=== PATIENT | female | born 1945 | race African-American/Black ===

== ENCOUNTER 2020-01-25 12:35 | Inpatient (IN) | payer MEDICARE, MEDICAID ==
[~2020-01-25] VITALS: Ht 165.1 cm; Wt 66.1 kg
--- NOTE | ~2020-01-25 | HEMODYNAMI ---
PATIENT:KALINA ISABEL MEDICAL RECORD: [id number] : 47 LOCATION:[facility] D2121 ADMISSION DATE: 01/25/20 Generatedon:01/27/202010:19 Patient name: KALINA ISABEL Patient #: [id number] SSN: [id number] : 1945 Date of study: 01/27/2020 Page: Of Hemodynamic Procedure Report Patient Data Patient Demographics Procedure consent was obtained First Name: KALINA Gender: Female Last Name: CHALO : 1945 Patient #: [id number] Age: 74 year(s) Race: Black SSN: [id number] Additional ID: [id number] Contact details [address]: [address] [place] [address] State: [place] City: [place] Zip code: [address] Admission Admission Data Admission Date: 01/25/2020 Admission Time: 15:12 Arrival Date: 01/27/2020 Arrival Time: 0:00 Admit Source: Other Insurance Payor: Medicare Room #: D.2121 [facility] #: [id number] Height (in.): 65 BSA: 1.73 (m2) Height (cm.): 165.1 BMI: 24.39 (kg/m2) Weight (lbs.): 146.54 Weight (kg.): 66.47 Lab Results Lab Result Date: 01/27/2020 Lab Result Time: 0:00 Biochemistry Name Units Result Min Max BUN mg/dl 22 --(----)-* 7 18 Creatinine mg/dl 1.3 --(---*)-- 0.6 1.3 eGFR ml/min 42 *-(----)-- 90 120 NONAFRICAN CBC Name Units Result Min Max Hematocrit % 37.5 *-(----)-- 42 54 Hemoglobin g/dl 12 *-(----)-- 13.5 17.5 Procedure Procedure Types Cath Procedure Diagnostic Procedure [facility] w/Coronaries Sedation Charges Moderate Sedation up to 15 minutes Procedure Description Procedure Date Procedure Date: 01/27/2020 Procedure Start Time: 10:05 Procedure End Time: 10:13 Procedure Staff Name Function Mary Galvez RT Scrub Tyler Willis RN Nurse Nkechi Joya RT Monitor Theresa Malcolm MD Performing Physician Procedure Data Cath Procedure Fluoroscopy Diagnostic fluoroscopy Total fluoroscopy Time: 1.7 time: 1.7 min min Diagnostic fluoroscopy Total fluoroscopy dose: 151 dose: 151 mGy mGy Contrast Material Contrast Material Type Amount (ml) Isovue 300 17 Entry Location Entry Primary Successful Side Size Upsize Upsize Entry Closure Roblero ccessful Closure Location (Fr) 1 (Fr) 2 (Fr) Remarks Device Remarks Radial Right 6 Fr Mechanical artery Short Compression Estimated blood loss: 5 ml Diagnostic catheters Device Type Used For End Catheter Placement DIAGNOSTIC [place] 110cm 5 Multi-vessel Fr catheter ([id number]) Angiography Procedure Complications No complications Procedure Medications Medication Administration Route Dosage Oxygen etCO2 Nasal cannula 2 l/min Lidocaine 2% added to field 20 Heparin Flush Bag added to field 2 bags (1000units/500ml NS) 0.9% NaCl I.V. 100 ml/hr Radial Cocktail I.A. 1 syringe (Verapamil 2mg/Nitro 400mcg/Heparin 1500units) Versed I.V. 1 mg Hemodynamics Rest BSA: 1.73 (m2) HGB: 12 (g/dl) O2 Consumption: Estimated: 163.18 (ml/min) O2 Cons umption indexed: Estimated:94.32 (ml/min/m) Heart Rate: 78 (bpm) Pressure Samples Time Site Value (mmHg) Purpose Heart Use Rate(bpm) 10:09 LV 108/8,23 Snapshot 69 10:09 LV 105/9,23 Snapshot 72 10:10 LV 102/14,17 EDP 71 10:10 AO 103/64(81) Pullback 70 10:10 LV 101/14,17 Pullback 70 Gradients Valve Time Site 1 Site 2 Mean SEP/DFP Peak To Heart Use (mmHg) (sec/min) Peak Rate (mmHg) (bpm) Aortic 10:10 LV AO 0 9 0 70 101/14,17 103/64(81) Calculations Valve P-P Mean Valve Index Valve Source Name Gradient Area Flow (cm2) Aortic 0 0 0 0 Snapshots Pre Cath Intra NCS Post Cath Vital Signs Time Heart Resp SPO2 etCO2 NIBP (mmHg) Rhythm Pain Sedation Rate (ipm) (%) (mmHg) Status Level (bpm) 9:46:15 71 37 100 0 136/58(119) NSR 0 (11) 10(A) , No pain 9:51:18 73 19 100 0 142/76(117) NSR 0 (11) 10(A) , No pain 9:55:34 74 31 97 11.9 145/95(133) NSR 0 (11) 10(A) , No pain 9:59:58 70 15 99 19.4 150/106(129) NSR 0 (11) 10(A) , No pain 10:04:30 73 19 99 11.9 135/83(96) NSR 0 (11) 10(A) , No pain 10:09:05 71 29 100 16.4 163/75(102) NSR 0 (11) 10(A) , No pain 10:14:31 69 6 100 17.1 162/88(113) NSR 0 (11) 10(A) , No pain Medications Time Medication Route Dose Verified Delivered Reason Notes Effectiveness by by 9:39:05 Oxygen etCO2 2 l/min Norred Tyler used for Nasal Gold Willis RN procedure cannula 9:39:11 Lidocaine 2% added 20ml Jemred Jemred for local to vial Gold Malcolm MD anesthetic field 9:39:18 Heparin Flush added 2 bags Norred Jemred used for Bag to Gold Malcolm MD procedure (1000units/500ml field NS) 9:39:26 0.9% NaCl I.V. 100 Norred Buffie Per ml/hr Gold Willis RN physician 10:00:45 Versed I.V. 1 mg Jemred Buffie for sedation Gold Willis RN 10:08:33 Radial Cocktail I.A. 1 Norred Norred for (Verapamil syringe Gold Malcolm MD vasodilation 2mg/Nitro 400mcg/Heparin 1500units) Procedure Log Time Note 9:08:01 Informed consent obtained and on chart 9:08:32 Diagnostic Cath Status : Urgent 9:10:00 Arrival Date: 01/27/2020 12:00:00 AM 9:10:01 Admit Source: Other 9:10:04 Insurance Payor : Medicare 9:10:07 Patient Height : 65 inches 9:10:15 Patient Weight : 146.54 lbs : Lab Result : BUN 22 mg/dl : Lab Result : Hemoglobin 12 g/dl : Lab Result : eGFR NONAFRICAN 42 ml/min : Lab Result : Creatinine 1.3 mg/dl Lab Result : Hematocrit 37.5 % 9:17:28 Tyler Willis RN sent for patient. Start room use. 9:27:34 Time tracking: Regular hours (M-F 7:00 - 5:00) 9:27:38 Plan of Care:Hemodynamics will remain stable., Cardiac rhythm will remain stable., Comfort level will be maintained., Respiratory function will remain adequate., Patient/ family verbilizes understanding of procedure., Procedure tolerated without complication., Recovers from procedure without complications.. 9:27:48 Patient received from Med II to CCL 2 Alert and oriented. Tansferred to table in Supine position. 9:27:49 Warm blankets applied, and owen hugger turned on for patient comfort. 9:27:49 Correct patient and procedure confirmed by team. 9:27:50 ECG and BP/O2 sat monitors applied to patient. 9:38:28 Vital chart was started 9:39:05 Oxygen 2 l/min etCO2 Nasal cannula was administered by Tyler Willis RN; used for procedure; Verbal order read back and verified. 9:39:11 Lidocaine 2% 20ml vial added to field was administered by Theresa Malcolm MD; for local anesthetic; Verbal order read back and verified. 9:39:18 Heparin Flush Bag (1000units/500ml NS) 2 bags added to field was administered by Theresa Malcolm MD; used for procedure; Verbal order read back and verified. 9:39:26 0.9% NaCl 100 ml/hr I.V. was administered by Tyler Willis RN; Per physician; Verbal order read back and verified. 9:39:48 Baseline sample Acquired. 9:40:00 Rhythm: sinus tachycardia 9:40:06 Full Disclosure recording started 9:40:11 H&P Date Dictated: 01/27/2020 New H&P dictated by physician.. 9:40:13 Pre-procedure instructions explained to patient. 9:40:13 Pre-op teaching completed and patient verbalized understanding. 9:40:19 Family unavailable. 9:40:20 Patient NPO since Midnight. 9:40:29 Is the patient allergic to Iodine/contrast media? No. 9:40:30 Was the patient premedicated? Yes 9:40:32 Is patient on blood thinner?Yes 9:40:34 ACC The patient was administered the following blood thiners within the last 24 hours: ACCPlavix 9:40:36 Patient diabetic? No. 9:40:39 Previous problem with sedation/anesthesia? No ? 9:40:40 Snore? No 9:40:41 Sleep apnea? No 9:40:42 Deviated septum? No 9:40:43 Opens mouth fully? Yes 9:40:43 Sticks out tongue? Yes 9:40:45 Airway obstruction? No ? 9:40:51 Dentures? Yes uppers in tight 9:41:11 Pre procedure: right dorsailis pedis pulse 1+ Palpable, but thready & weak; easily obliterated 9:41:14 Pre procedure: left dorsailis pedis pulse 1+ Palpable, but thready & weak; easily obliterated 9:41:42 Patient pain scale 0/10 ?. 9:42:16 IV patent on arrival in right antecubital with 0.9% NaCl at [facility]. 9:42:20 Lab results completed and on chart. 9:42:36 Stress Test: no; N/A ? 9:47:07 Risk of Mortality: 0.1 9:47:09 Risk of blood transfusion: 1.3 9:47:13 Risk of DIO: 2.3 9:47:17 Right Radial & Right Groin area was prepped with chlora-prep and draped in sterile fashion 9:47:18 Alarms reviewed by R. N. 9:47:19 Sharps counted by scrub and verified by R.N. 9:47:20 Physician arrived 9:47:22 --------ALL STOP TIME OUT------ 9:47:22 --------ALL STOP TIME OUT------ 9:47:22 Final Timeout: patient, procedure, and site verified with staff and physician. All members of the team are in agreement. 9:47:24 Right Radial & Right Groin site verified by team. 9:47:28 Fire Safety Assessment: A--An alcohol-based skin anteseptic being used preoperatively., C--Open oxygen or nitrous oxide is being used., D--An ESU, laser, or fiber-optic light is being used. 9:47:33 Physical assessment completed. ASA score P 2 - A patient with mild systemic disease as per Theresa Malcolm MD. 9:47:36 3b) 30-44 Moderately reduced kidney function. 9:47:42 Maximum allowable contrast dose (3.7 X eGFR X 0.75)116 ml. 9:47:45 Sedation plan: IV Moderate Sedation Medication:Versed, Fentanyl 9:47:48 Use device set Radial Dx or PCI 9:47:49 ACIST Syringe (68154) opened to sterile field. 9:47:50 Medline Cath Pack ([id number]) opened to sterile field. 9:47:51 Bag Decanter (2002S) opened to sterile field. 9:47:51 ACIST Hand Control (10594) opened to sterile field. 9:47:51 ACIST Manifold (06376) opened to sterile field. 9:47:52 Tegaderm 4 x 4 (1626W) opened to sterile field. 9:47:53 MBrace Wrist Support ([id number]) opened to sterile field. 9:47:55 EMERALD Guide Wire (876-979) opened to sterile field. 9:47:56 SHEATH 6FR RAIN (6033187) opened to sterile field. 10:00:45 Versed 1 mg I.V. was administered by Tyler Willis RN; for sedation; Verbal order read back and verified. 10:05:10 Procedure started. 10:05:25 Local anesthetic to right radial artery with Lidocaine 2% by Theresa Malcolm MD.INITIAL ACCESS ONLY 10:05:37 A 6 Fr Short sheath was inserted into the Right Radial artery 10:06:15 Zero performed for pressure channel P1 10:08:23 A DIAGNOSTIC [place] 110cm 5 Fr catheter (532923) was advanced over the wire and used for Multi-vessel Angiography. 10:08:33 Radial Cocktail (Verapamil 2mg/Nitro 400mcg/Heparin 1500units) 1 syringe I.A. was administered by Theresa Malcolm MD; for vasodilation; Verbal order read back and verified. 10:10:02 LV hemodynamics recorded. 10:10:04 LV gram done using PANDYA 10:10:07 Injector settings: Ml/sec: 12, Volume: 8, 10:10:49 EF : 15 % 10:11:01 RCA angiography performed. 10:11:04 Injector settings: Ml/sec: 2, Volume: 4, 10:11:22 LCA angiography performed. 10:11:36 Injector settings: Ml/sec: 2, Volume: 4, 10:11:38 Catheter removed. 10:11:57 Sheath removed intact; hemostasis achieved with Mechanical Compression to the Right Radial artery. 10:12:12 Procedure ended.(Physican Out) 10:12:35 Fluoroscopy time 01.70 minutes. 10:12:38 Fluoroscopy dose: 151 mGy 10:12:38 Flurop Dose total: 151 10:12:46 Dose Area Product 72932 mGy/cm. 10:12:48 Contrast amount:Isovue 300 17ml. 10:12:50 Maximum allowable dose exceeded? No. 10:12:51 Sharps counted by scrub and verified by R.N. 10:12:54 [place] band inflated with 10cc of air. 10:12:55 Insertion/operative site no bleeding no hematoma. 10:12:58 Post right radial artery:stable 10:13:00 Post Procedure Pulses reassessed and unchanged 10:13:02 Post procedure rhythm: unchanged. 10:13:04 Estimated blood loss: 5 ml 10:13:06 Post procedure instruction explained to patient.Patient verbalizes understanding. 10:13:06 Patient needs reinforcement of post procedure teaching. 10:13:17 Procedure type changed to Cath procedure, Diagnostic procedure, C, [facility] w/Coronaries, Sedation Charges, Moderate Sedation up to 15 minutes 10:13:27 Procedure and supply charges have been captured, reviewed, submitted and are correct. 10:13:31 Procedure Complication : No complications 10:13:33 Vital chart was stopped 10:13:38 [facility] Findings: MVD- MD will discuss options w/ pt 10:13:40 Operative report dictated upon procedure completion. 10:13:40 See physician's report for complete and final results. 10:13:42 Report given to [facility]. 10:13:45 Patient transfered to [facility] with Stretcher. 10:13:47 Procedure ended. 10:13:47 Full Disclosure recording stopped 10:13:53 End room use (Document Last) 10:14:34 ZEPHYR REGULAR TR BAND (812195) opened to sterile field. 10:15:27 ZEPHYR LARGE TR BAND (066536) opened to sterile field. 10:18:14 TR BAND Standard ([id number]) opened to sterile field. Device Usage Item Name Manufacture Quantity Catalog Hospital Part Current Minima l Lot# / Number Charge Number Stock Stock Serial# Code ACIST Acist 1 62272 948183 178104 [id number] 20 Syringe Medical (23396) Systems Inc Medline Medline 1 [id number] 622389 10014 845617 5 Cath Pack ([id number]) Bag Microtek 1 2001S 415166 77582 673478 5 Decanter Medical Inc. (2001S) ACIST Hand Acist 1 33280 318339 520918 036212 5 Control Medical (98169) Systems Inc ACIST Acist 1 30262 821190 150968 740993 5 Manifold Medical (57588) Systems Inc Tegaderm 4 3M 1 1626W 359606 995701 408381 5 x 4 (1626W) MBrace Advanced 1 140-0250-00 325864 96104 008455 5 Wrist Vascular Support Dynamics ([id number]) EMERALD Cardinal 1 502-455 835938 464935 736676 5 Guide Wire Health (502-455) SHEATH 6FR Cardinal 1 3528435 304264 1303155 772944 5 RAIN Health (5100281) DIAGNOSTIC Terumo 1 40-5533 415916 360161 752281 5 [place] 110cm 5 Fr catheter (222423) ZEPHYR Cardinal 1 416442 745116 9974729 754578 5 REGULAR TR Health BAND (311376) ZEPHYR Cardinal 1 813063 427182 4207479 250285 5 LARGE TR Health BAND (189051) TR BAND Terumo 1 [id number] 987041 129912 448155 40 Standard ([id number]) Signature Audit Lewis Stage Time Signature Unsigned Intra-Procedure 01/27/2020 Nkechi Joya 10:15:28 AM RT(R) Intra-Procedure 01/27/2020 Tyler Willis RN 10:18:14 AM Intra-Procedure 01/27/2020 Theresa Malcolm MD 10:19:20 AM Signatures Nurse : Tyler Willis RN Signature : Date : Time : Monitor : Nkechi Toan RT Signature : Date : Time : Performing Physician : Signature : Norred Gold MD Date : Time : [place] [address] [place] [address]
[2020-01-25] MEDS ORDERED: COREG12.5 MG PO (12:56)
[2020-01-25] MEDS ORDERED: CARAFATE1 G/10 ML PO (12:56)
[2020-01-25] MEDS ORDERED: BENTYL 20 MG TA20 MG PO (12:57)
[2020-01-25] MEDS ORDERED: NEXIUM20 MG PO (12:58)
[2020-01-25] MEDS ORDERED: FERROUS SULFAT325 MG PO (13:01)
[2020-01-25] MEDS ORDERED: REMERON15 MG PO (13:02)
[2020-01-25] MEDS ORDERED: FUROSEMIDE40 MG PO (13:02)
[2020-01-25] MEDS ORDERED: NEURONTIN 300300 MG PO (13:02)
[2020-01-25] MEDS ORDERED: LISINOPRIL20 MG PO (13:02)
[2020-01-25] MEDS ORDERED: FLUTICASONE PRO16 GM (13:02)
[2020-01-25] MEDS ORDERED: K-TAB10 MEQ PO (13:03)
[2020-01-25] MEDS ORDERED: PROTONIX40 MG PO (13:03)
[2020-01-25] MEDS ORDERED: ZOCOR40 MG PO (13:04)
[2020-01-25] MEDS ORDERED: PROAIR HFA8.5 G1 INH (13:04)
--- NOTE | 2020-01-25 13:15 | NUR ---
PT PROVIDED LUNCH TRAY. PT SITTING UPRIGHT ON BED. NO S/S OF ACUTE DISTRESS NOTED.
[2020-01-25 13:20] LABS: HEMOGLOBIN 13.4 g/dL (12-16); MCH 22.9 pg (26.0-34.0); MCHC 33.5 g/dL (31.0-37.0); MCV 68.5 fL (80.0-100.0); PLATELET COUNT 144 10x3/uL (130-400); RBC 5.84 10x6/uL (4.00-5.40); RDW 21.3 % (11.5-14.5); WBC 3.7 10x3/uL (4.8-10.8)
[2020-01-25 13:27] LABS: BILIRUBIN NEGATIVE (NEGATIVE); GLUCOSE NEGATIVE (NEGATIVE); KETONE NEGATIVE (NEGATIVE); NITRITE NEGATIVE (NEGATIVE); UROBILINOGEN NORMAL (NORMAL)
[2020-01-25 13:38] LABS: ANION GAP 12.8 mmol/L (8-16); CALCIUM 8.9 mg/dL (8.5-10.1); CARBON DIOXIDE 26.1 mmol/L (21.0-32.0); CREATININE - SERUM 1.5 mg/dL (0.6-1.3); POTASSIUM - SERUM 3.9 mmol/L (3.5-5.1)
[2020-01-25 13:42] LABS: EOSINOPHILS 3 % (0-7); LYMPHOCYTES 41 % (15-50); MONOCYTES 3 % (2-11); NEUTROPHILS 49 % (40-80); PLATELET ESTIMATE NORMAL; SCHISTOCYTES OCC; TARGET CELLS 1+; TEAR DROP CELLS OCC
[2020-01-25 13:43] LABS: ROULEAUX OCC
[2020-01-25 13:59] LABS: ALBUMIN 3.4 g/dL (3.4-5.0); BILIRUBIN - TOTAL 1.98 mg/dL (0.2-1.3); MAGNESIUM - SERUM 2.1 mg/dL (1.8-2.4); PROTEIN - SERUM 7.2 g/dL (6.4-8.2)
[2020-01-25 14:00] VITALS: BP 136/87
[2020-01-25 14:05] LABS: TROPONIN-I 0.084 ng/mL (0.000-0.060)
[2020-01-25 14:53] LABS: % SATURATION 70 % (15-55); IRON 167 ug/dl (35-150); TOTAL IRON BIND CAPACITY 236 ug/dl (260-445); UNSAT IRON BIND CAPACITY 69 ug/dl (150-375)
--- NOTE | 2020-01-25 15:00 | NUR ---
PT RESTING ON BED. NO S/S OF ACUTE DISTRESS NOTED.
--- NOTE | 2020-01-25 16:52 | NUR ---
RECEIVED PT TO ROOM 2120, VIA WHEELCHAIR, PT WAS ABLE TO AMBULATE FROM WHEELCHAIR TO BED WITH STEADY GATE. PT A/O X4, RESP EVEN AND NONLABORED ON RA. RT AC IV SL. ORIENTED PT TO ROOM AND CALL LIGHT. WILL ASSESS PT AND START PLAN OF CARE.
[2020-01-25] MEDS ORDERED: PEPCID40 MG PO (17:04)
[2020-01-25] MEDS ORDERED: BUSPIRONE HCL7.5 MG PO (17:05)
[2020-01-25] MEDS ORDERED: ZYRTEC10 MG PO (17:08)
[2020-01-25] MEDS ORDERED: STOOL SOFTENER100 M1 PO (17:08)
[2020-01-25] MEDS ORDERED: BAYER ASPIRIN325 MG PO (17:09)
[2020-01-25] MEDS ORDERED: PROBIOTIC250 MG PO (17:11)
[2020-01-25] MEDS ORDERED: LEVOTHYROXINE100 MCG PO (17:11)
[2020-01-25 17:29] VITALS: BP 126/86; BMI 24.3
[2020-01-25 17:37] LABS: CKMB 0.7 U/L (0.0-3.6); CREATINE KINASE 61 UL (21-215)
[2020-01-25 17:38] LABS: TROPONIN-I 0.092 ng/mL (0.000-0.060)
[2020-01-25 18:44] LABS: APTT 33.2 SECONDS (22.8-39.4); INR 1.49 (0.85-1.17); PROTIME 17.9 SECONDS (11.6-15.0)
[2020-01-25 20:00] VITALS: BP 108/74
[2020-01-25 23:06] LABS: CKMB 0.8 U/L (0.0-3.6); CREATINE KINASE 53 UL (21-215)
[2020-01-25 23:07] LABS: TROPONIN-I 0.072 ng/mL (0.000-0.060)
[2020-01-26] VITALS: BP 93/57
--- NOTE | 2020-01-26 01:05 | NUR ---
INITIAL ROUNDS COMPLETED AT 1915 HRS. PT DENIED ANY DISCOMFORT. ASSESSMENT COMPLETED AT 2004 HRS. VSS. SR PER CM HR 81. ALERT AND ORIENTED TO PERSON,PLACE AND TIME. COPE. LUNGS CTA. PALPABLE PERIPHERAL PULSES. IV TO RAC SL. PM MEDS GIVEN. PT CURRENTLY RESTING WITH EYES CLOSED. RESP EVEN AND REGULAR. SR UP X2,CALL LIGHT WITHIN REACH.
--- NOTE | 2020-01-26 03:22 | NUR ---
PT RESTING WITH EYES CLOSED. RESP EVEN AND REGULAR. SR UP X2, CALL LIGHT WITHIN REACH.
[2020-01-26 05:42] LABS: HEMATOCRIT 39.8 % (36.0-48.0); HEMOGLOBIN 12.4 g/dL (12-16); LYMPHOCYTES 49.4 % (15-50); MCH 22.2 pg (26.0-34.0); MCHC 31.2 g/dL (31.0-37.0); NEUTROPHILS 37.7 % (40-80); PLATELET COUNT 159 10x3/uL (130-400); RBC 5.58 10x6/uL (4.00-5.40); RDW 23.9 % (11.5-14.5); WBC 3.6 10x3/uL (4.8-10.8)
[2020-01-26 05:48] LABS: MCV 71.3 fL (80.0-100.0)
[2020-01-26 05:53] LABS: ALBUMIN 2.8 g/dL (3.4-5.0); ANION GAP 12.2 mmol/L (8-16); BILIRUBIN - TOTAL 1.5 mg/dL (0.2-1.3); CALCIUM 8.4 mg/dL (8.5-10.1); CARBON DIOXIDE 24.6 mmol/L (21.0-32.0); CREATININE - SERUM 1.2 mg/dL (0.6-1.3); POTASSIUM - SERUM 3.8 mmol/L (3.5-5.1); PROTEIN - SERUM 6.4 g/dL (6.4-8.2)
--- NOTE | 2020-01-26 06:33 | NUR ---
VSS THROUGHOUT NIGHT. SR PER CM. PT DENIED ANY DISCOMFORT. RESTED WELL DURING SHIFT. NEEDS MET; WILL CONTINUE TO MONITOR.
[2020-01-26 08:02] VITALS: BP 121/76
[2020-01-26 11:39] VITALS: BP 99/58
[2020-01-26 15:48] VITALS: BP 97/71
[2020-01-26 20:00] VITALS: BP 91/55
[2020-01-27] VITALS: BP 89/59
--- NOTE | 2020-01-27 00:23 | NUR ---
INITIAL ROUNDS COMPLETED AT 1915 HRS. PT DENIED ANY DISCOMFORT. ASSESSMENT COMPLETED AT 1945 HRS. VSS. SR PER CM HR 76. ALERT AND ORIENTED TO PERSON, PLACE AND TIME. COPE. LUNGS DIMINISHISED IN BASES BILAT. L MASECTOMY NOTED. IV TO RAC SL. COPE. PALPABLE PERIPHERAL PULSES. PM MEDS GIVEN PER ORDERS, TYLENOL 650 MG GIVEN AT 2330 HRS FOR C/O BACK PAIN 01/14. PT CURRENTLY RESTING WITH EYES CLOSED. RESP EVEN AND REGULAR. SR UP X1, CALL LIGHT WITHIN REACH.
--- NOTE | 2020-01-27 02:20 | NUR ---
PT RESTING WITH EYES CLOSED. RESP EVEN AND REGULAR. CALL LIGHT WITHIN REACH.
[2020-01-27 04:00] VITALS: BP 97/66
--- NOTE | 2020-01-27 04:17 | NUR ---
PT RESTING WITH EYES CLOSED. RESP EVEN AND REGULAR. CALL LIGHT WITHIN REACH.
--- NOTE | 2020-01-27 06:09 | NUR ---
VSS THROUGHOUT NIGHT. SR PER CM. PT STATED TYLENOL ALLEVIATED BACK ACHE. NEEDS MET; WILL CONTINUE TO MONITOR.
[2020-01-27 06:51] LABS: HEMATOCRIT 37.5 % (36.0-48.0); LYMPHOCYTES 46.3 % (15-50); MCH 22.8 pg (26.0-34.0); MCV 71.3 fL (80.0-100.0); NEUTROPHILS 40.1 % (40-80); PLATELET COUNT 133 10x3/uL (130-400); RBC 5.26 10x6/uL (4.00-5.40); RDW 23.7 % (11.5-14.5); WBC 3.4 10x3/uL (4.8-10.8)
[2020-01-27 07:10] LABS: ALBUMIN 2.7 g/dL (3.4-5.0); BILIRUBIN - TOTAL 1.36 mg/dL (0.2-1.3); CALCIUM 8.3 mg/dL (8.5-10.1); CARBON DIOXIDE 23.4 mmol/L (21.0-32.0); CREATININE - SERUM 1.3 mg/dL (0.6-1.3); MAGNESIUM - SERUM 1.9 mg/dL (1.8-2.4); POTASSIUM - SERUM 3.4 mmol/L (3.5-5.1); PROTEIN - SERUM 6.1 g/dL (6.4-8.2)
--- NOTE | 2020-01-27 07:20 | NUR ---
RECIEVE REPORT. ALERT AND ORIENTED X4. SITTING UP ON SIDE OF BED. CONSENTS SIGNED ON CHART FOR JAVA DEVELOPMENT MANAGER. DENIES ANY NEEDS. CONTINUE PLAN OF CARE AND SAFETY PRECAUTIONS.
[2020-01-27 09:13] VITALS: BP 110/74
--- NOTE | 2020-01-27 10:37 | NUR ---
RETURN TO ROOM VIA BED FROM HOMICIDE SQUAD SERGEANT. ALERT AND ORIENTED X4. ZYTHROBAND RT RADIAL CLEAN DRY INTACT. FREE FROM HEMATOMA. HR-68 SINUS RYTHM, O2-99% RA, BP-170/64. CONTINUE PLAN OF CARE AND SAFETY PRECAUTIONS.
[2020-01-27 11:00] VITALS: BP 170/71
[2020-01-27 15:00] VITALS: BP 115/79
--- NOTE | 2020-01-27 16:31 | NUR ---
ALERT AND ORIENTED X4. SITTING UP IN BED. ZYTHROBAND DEFLATED. REMAINS FREE FROM BLEEDING. FREE FROM HEMATOMA. DRESSING APPLIED TO RT WRIST. DENIES ANY NEEDS. SINUS RYTHM ON TELEMETRY. CONTINUE PLAN OF CARE AND SAFETY PRECAUTIONS.
--- NOTE | 2020-01-27 19:54 | NUR ---
HS MEDS GIVEN WITH FRESH ICE WATER. PT DENIES PAIN OR OTHER NEEDS.
[2020-01-27 20:00] VITALS: BP 127/35
--- NOTE | 2020-01-27 20:02 | NUR ---
NOTIFIED BY MT THAT PT HAS HAD 9 BEAT RUN OF V TACH. PT IN BED, AWAKE, VITALS STABLE, PT ASYMPTOMATIC.
[2020-01-28] VITALS: BP 137/76
--- NOTE | 2020-01-28 00:18 | NUR ---
UP WITH ASSIST TO BR.
--- NOTE | 2020-01-28 03:04 | NUR ---
I have reviewed this patient and I concur with the Shift Assessment completed by the Licensed Practical Nurse today this shift.
[2020-01-28 04:00] VITALS: BP 127/66
--- NOTE | 2020-01-28 07:20 | NUR ---
RECIEVE REPORT. ALERT AND ORIENTED X4. ASSIST OOB TO RESTROOM. MINIMAL ASSISTANCE NEEDED. DENIES ANY OTHER NEEDS. CONTINUE PLAN OF CARE AND SAFETY PRECAUTIONS.
[2020-01-28 08:22] LABS: ANION GAP 19.1 mmol/L (8-16); BILIRUBIN - TOTAL 1.95 mg/dL (0.2-1.3); CALCIUM 8.2 mg/dL (8.5-10.1); CARBON DIOXIDE 20.5 mmol/L (21.0-32.0); CREATININE - SERUM 1.1 mg/dL (0.6-1.3); MAGNESIUM - SERUM 1.9 mg/dL (1.8-2.4); POTASSIUM - SERUM 3.6 mmol/L (3.5-5.1); PROTEIN - SERUM 6.4 g/dL (6.4-8.2)
[2020-01-28 09:00] VITALS: BP 143/69
[2020-01-28 10:15] LABS: BASOPHILS 0.7 % (0-2); EOSINOPHILS 2.1 % (0-7); IMMATURE GRANULOCYTES 0.2 % (0-5); LYMPHOCYTES 31.9 % (15-50); MCH 23.2 pg (26.0-34.0); MCHC 33.7 g/dL (31.0-37.0); NEUTROPHILS 55.1 % (40-80)
[2020-01-28 10:18] LABS: WBC 4.3 10x3/uL (4.8-10.8)
[2020-01-28 10:22] LABS: HEMATOCRIT 46.3 % (36.0-48.0); HEMOGLOBIN 15.6 g/dL (12-16); MCV 68.8 fL (80.0-100.0); PLATELET COUNT 163 10x3/uL (130-400); RBC 6.73 10x6/uL (4.00-5.40)
--- NOTE | 2020-01-28 11:07 | NUR ---
NOTIFY WANDA MARTINES OF CRITICAL RBC 6.45.
[2020-01-28 12:42] VITALS: Ht 165.1 cm; Wt 66.1 kg
--- NOTE | 2020-01-28 14:02 | EC ---
PATIENT:KALINA ISABEL DATE OF SERVICE: 01/25/20 SEX: F MEDICAL RECORD: [id number] DATE OF : [birth year] LOCATION:D.M2 D.212 AGE OF PATIENT: 74 ADMISSION DATE: 01/25/20 REFERRING PHYSICIAN: INTERPRETING PHYSICIAN: VIV HILL MD ECHOCARDIOGRAM REPORT ECHO CHARGES 4 ECHO COMPLETE Date: 01/26/20 CLINICAL DIAGNOSIS: POSSIBLE CHF ECHOCARDIOGRAPHIC MEASUREMENTS (adult normal given) AC root (d.<3.7cm) 2.4 cm LV Septum d (<1.2 cm> 1.0 cm Valve Excursion 1.6 cm LV Septum (systole) 1.4 cm Left Atria (s.<4.0cm> 5.3 cm LVPW d(<1.2cm) 1.0 cm RV (d.<2.3cm) 3.3 cm LVPW (sytole) 1.5 cm LV diastole(<5.6CM) 6.6 cm MV E-F(>70mm/sec) cm LV systole 5.2 cm LVOT Diameter 1.7 cm MV exc.(>10mm) cm Est.ejection fraction (50-75%) % DOPPLER: LVIT cm/sec A 31.0 cm/sec E 122 cm/sec LA cm/sec RVSP 36.4 mmHg LVOT 48.0 cm/sec AOP1/2T 661.0m/s Asc. 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 FINDINGS: 1. Left ventricle: Left ventricle is dilated with global hypokinesis. There is no regional wall motion abnormalities. The overall ejection fraction is 25%. 2. Left atrium is severely dilated at 5.3 cm. 3. Aortic valve is mildly sclerotic. There is no evidence of aortic stenosis with trileaflet valves. ECHOCARDIOGRAM REPORT [id number] KALINA ISABEL 4. Mitral valve has moderate to moderately severe mitral regurgitation, which is eccentric. The mitral valve apparatus overall looks normal. 5. The tricuspid valve has iigq-jr-pfioqsle tricuspid regurgitation. The RVSP is 40-50 mmHg. 6. The pericardium is normal. 7. The right ventricle is mildly dilated with normal function. 8. The right atrium is severely dilated at 4.7 cm. 9. 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 TRANSINT:[id number] Voice Confirmation ID: [id number] DOCUMENT ID: [id number] VIV HILL MD at 1402 CC: [id number] DICTATION DATE: 01/27/20 0721 CRANIOLOGIST: 01/27/[address] [facility] [address] [place] [address]
[2020-01-28 15:00] VITALS: BP 118/58
--- NOTE | 2020-01-28 19:08 | NUR ---
RECEIVED BEDSIDE REPOPRT. PATIENT IS ALERT AND ORIENTED, RESTING COMFORTABLY IN BED. RESPIRATIONS ARE EVEN AND UNLABORED. NO S/S OF DISTRESS. NO C/O PAIN. CALL LIGHT WITHIN REACH. WILL CPOC.
[2020-01-28 20:00] VITALS: BP 120/40
[2020-01-29] VITALS: BP 176/77
[2020-01-29 04:00] VITALS: BP 123/61
[2020-01-29 07:11] LABS: ALBUMIN 2.8 g/dL (3.4-5.0); ANION GAP 9.2 mmol/L (8-16); BILIRUBIN - TOTAL 1.67 mg/dL (0.2-1.3); CALCIUM 7.7 mg/dL (8.5-10.1); CARBON DIOXIDE 27.8 mmol/L (21.0-32.0); MAGNESIUM - SERUM 1.8 mg/dL (1.8-2.4); PROTEIN - SERUM 6.3 g/dL (6.4-8.2)
[2020-01-29 07:38] LABS: BASOPHILS 0.8 % (0-2); EOSINOPHILS 4.2 % (0-7); IMMATURE GRANULOCYTES 0.3 % (0-5); LYMPHOCYTES 34.6 % (15-50); MCH 23.1 pg (26.0-34.0); MCHC 34.1 g/dL (31.0-37.0); MCV 67.7 fL (80.0-100.0); MONOCYTES 13.3 % (2-11); NEUTROPHILS 46.8 % (40-80); PLATELET COUNT 142 10x3/uL (130-400); RBC 6.06 10x6/uL (4.00-5.40); RDW 21.5 % (11.5-14.5); WBC 3.8 10x3/uL (4.8-10.8)
[2020-01-29 09:00] VITALS: BP 110/74
[2020-01-29 11:00] VITALS: BP 106/66
--- NOTE | 2020-01-29 12:17 | NUR ---
Rehab Note- Acute Inpatient Rehab prescreen order received. THe patient has [employer] insurance and would require a PreAuth prior to an acute inpatient rehab stay. Per the PT Eval the patient is doing well and recommend home with home health. Thank you for this referral! Meron Wetzel RN Clinical Liaison, [facility]
--- NOTE | 2020-01-29 12:20 | NUR ---
RUN OF 14 V-TACH NOTED. WILL CONT. TO MONITOR.
--- NOTE | 2020-01-29 13:03 | NUR ---
Patient will qualify for Outpatient Cardiac Rehab due to EF=25% or less, CHF and [facility] III-IV, since patient lives in [place], [place], there is Cardiac Rehab offered at [facility] in [facility] # [phone] or Cardiac Rehab in [place] 1st @ [facility] # [phone], 2nd @ [facility] # [phone]. We do not have inpatient Cardiac Rehab.
--- NOTE | 2020-01-29 15:12 | NUR ---
TELEMETRY SR. UP AMBULATING HALLWAY WITH PT ASSIST.
--- NOTE | 2020-01-29 16:06 | NUR ---
RUN OF 10 VTACH CALLED TO GABRIELE MUÑOZ.
--- NOTE | 2020-01-29 17:41 | NUR ---
OT NOTE: PT COMPLETED SUPINE TO SIT WITH CGA.PT COMPLETED BED TO TOILET ADL MOB WITH CGA. PT COMPLETED TOILETING TASKS WITH MIN A. PT REQUIRED MIN A FOR CLOTHING MANAGEMENT. PT COMPLETED HAND HYGIENE WITH SBA. [phone] THANK YOU,JACQUELINE PENA
--- NOTE | 2020-01-29 19:35 | NUR ---
RECEIVED BEDSIDE REPORT. PATIENT IS ALERT AND ORIENTED, RESTING COFMORTABLYI N BED. RESPIRATIONS ARE EVEN AND UNLABORED. NO S/S OF DISTRESS. NO C/O PAIN. CALL LIGHT WITHIN REACH. WILL CPOC.
[2020-01-29 20:00] VITALS: BP 111/43
[2020-01-30] VITALS: BP 122/68
[2020-01-30 04:00] VITALS: BP 142/55
--- NOTE | 2020-01-30 07:10 | NUR ---
REPORT RECEIVED AND PATIENT CARE ASSUMED. PATIENT LAYING IN BED ON BACK WITH EYES CLOSED AND BREATHING EVENLY. WILL CONTINUE WITH PLAN OF CARE. SR UP X 2 BE IN LOW POSITION AND CALL LIGHT IN REACH.
[2020-01-30 07:30] LABS: ALBUMIN 2.7 g/dL (3.4-5.0); ANION GAP 10.6 mmol/L (8-16); BILIRUBIN - TOTAL 1.79 mg/dL (0.2-1.3); CALCIUM 7.6 mg/dL (8.5-10.1); CARBON DIOXIDE 26.4 mmol/L (21.0-32.0); CREATININE - SERUM 0.8 mg/dL (0.6-1.3); MAGNESIUM - SERUM 1.6 mg/dL (1.8-2.4); PROTEIN - SERUM 6.2 g/dL (6.4-8.2)
--- NOTE | 2020-01-30 08:00 | NUR ---
PATIENT COMPLAINS OF PAIN AND SWELLING TO LEFT KNEE. SMALL EDEMA NOTED AND WARM TO TOUCH. IFOMED DORITA RIOS. NEW ORDER RECEIVED FOR TRAMADOL AND XRAYS ORDERED. WILL CONTINUE TO MONITOR. SR UP X 2 BED IN LOW POSTION AND CALL LIGHT IN REACH.
[2020-01-30 08:05] LABS: BASOPHILS 0.3 % (0-2); EOSINOPHILS 0.7 % (0-7); HEMATOCRIT 40.7 % (36.0-48.0); HEMOGLOBIN 13.9 g/dL (12-16); IMMATURE GRANULOCYTES 0.2 % (0-5); LYMPHOCYTES 18.7 % (15-50); MCH 22.9 pg (26.0-34.0); MCHC 34.2 g/dL (31.0-37.0); MCV 67.1 fL (80.0-100.0); MONOCYTES 14.8 % (2-11); NEUTROPHILS 65.3 % (40-80); PLATELET COUNT 137 10x3/uL (130-400); RBC 6.07 10x6/uL (4.00-5.40); RDW 21.4 % (11.5-14.5); WBC 6.2 10x3/uL (4.8-10.8)
--- NOTE | 2020-01-30 12:09 | MORECARE ---
CASE MANAGEMENT DISCHARGE SUMMARY PATIENT: KALINA ISABEL UNIT: [id number] ADM DATE: 01/28/20 AGE: 74 : 47 SEX: F ROOM/BED: D.2121 AUTHOR: JM BLANCAS PHYSICIAN: REFERRING PHYSICIAN: TOMASA MCGEE MD DATE OF SERVICE: 01/30/20 Discharge Plan Patient Name: KALINA ISABEL [facility] [facility] 1945 Planned Disposition: Anticipated Discharge Date: Discharge Date: Expected LOS: Initial Reviewer: [email or web address] Initial Review Date: 01/25/2020 Generated: 01/30/20 1:09 pm Coverage Notice Reviewer: [email or web address] Megan Stock Notice Issued Date-Time: 01/26/2020 14:10 Notice Type: Medicare Outpatient Observation Notice Notice Delivered To: Patient Relationship to Patient: Self Alteration Workroom Supervisor Name: Delivery Method: HAND - Hand Delivered Alma Delia Days: Prior Verbal Notification: Recipient Understood Notice: Recipient Signature: Yes Med Rec Note Co-signed by Attending: Coverage Notice Comment: Patient Name: KALINA ISABEL Page [phone] at 1209 All edits/amendments must be made on the electronic document DICTATION DATE: 01/30/20 1209 BATON TWIRLER: FAHAD 01/30/20 1209 RPT#: [id number] DC DATE: STATUS: ADM IN [facility] [address] [place] [address] END OF REPORT
--- NOTE | 2020-01-30 12:18 | MORECARE ---
CASE MANAGEMENT DISCHARGE SUMMARY PATIENT: KALINA ISABEL UNIT: [id number] ADM DATE: 01/28/20 AGE: 74 : [birth year] SEX: F ROOM/BED: D.[facility] AUTHOR: JM BLANCAS PHYSICIAN: REFERRING PHYSICIAN: TOMASA MCGEE MD DATE OF SERVICE: 01/30/20 Discharge Plan Patient Name: KALINA ISABEL Facility: [facility]:[place] : 1945 Planned Disposition: Anticipated Discharge Date: Discharge Date: Expected LOS: Initial Reviewer: [id number] Initial Review Date: 01/25/2020 Generated: 01/30/20 1:17 pm DCPIA - Discharge Planning Initial Assessment Updated by [email or web address]: Cherise Moraes on 01/30/20 12:13 pm * Is the patient Alert and Oriented? Yes * How many steps to enter\exit or inside your home? RAMP * PCP CHRISTA JIMENEZ * [facility] * Preadmission Environment Home Alone * ADLs Independent * Equipment Shower Chair * List name and contact numbers for known caregivers / representatives who currently or will assist patient after discharge: ESMER MATTHEWS [phone] * Verbal permission to speak to the caregivers and representatives has been obtained from the patient. Yes * Community resources currently utilized None * Additional services required to return to the preadmission environment? Yes * Can the patient safely return to the preadmission environment? No * Has this patient been hospitalized within the prior 30 days at any hospital? No Coverage Notice Reviewer: [id number] Megan Stock Notice Issued Date-Time: 01/26/2020 14:10 Notice Type: Medicare Outpatient Observation Notice Notice Delivered To: Patient Relationship to Patient: Self Adjunct Trainer Name: Delivery Method: HAND - Hand Delivered Alma Delia Days: Prior Verbal Notification: Recipient Understood Notice: Recipient Signature: Yes Med Rec Note Co-signed by Attending: Coverage Notice Comment: Patient Name: KALINA ISABEL Page [id number] at 1218 All edits/amendments must be made on the electronic document DICTATION DATE: 01/30/20 1217 TIE SAWYER: FAHAD 01/30/20 1217 RPT#: [id number] DC DATE: STATUS: ADM IN [facility] [address] [place] [address] END OF REPORT
--- NOTE | 2020-01-30 12:37 | MORECARE ---
CASE MANAGEMENT DISCHARGE SUMMARY PATIENT: KALINA JOSEPH UNIT: [id number] ADM DATE: 01/28/20 AGE: 74 : 47 SEX: F ROOM/BED: D.2121 AUTHOR: YONNY,DOC PHYSICIAN: REFERRING PHYSICIAN: TOMASA MCGEE MD DATE OF SERVICE: 01/30/20 Discharge Plan Patient Name: KALINA JOSEPH Facility: [facility]:[place] : 1945 Planned Disposition: Anticipated Discharge Date: Discharge Date: Expected LOS: Initial Reviewer: [id number] Initial Review Date: 01/25/2020 Generated: 01/30/20 1:37 pm Comments DCP- Discharge Planning Updated by [id number]: Cherise Moraes on 01/30/20 11:[address] Patient Name: KALINA JOSEPH Admission Status: Elective Accout number: [id number] Admission Date: 01-28-2020 : 1945 Admission Diagnosis: Attending: TOMASA EDGE Current LOS: 2 Anticipated DC Date: Planned Disposition: Primary Insurance: [facility] MEDICARE SOLUTIONS Discharge Planning Comments: CM met with patient to complete initial dc planning assessment. CM educated patient on the CM role and verbal consent given by patient to complete assessment. CM verified patient's address, phone number, and emergency contact phone numbers. Patient lives at home alone and has been independent with all her needs. At discharge patient would like to go to IP rehab to help with endurance, and health after. Pt states she will stay with her daughter until she can stay alone. Her daughter is Xiomara Joseph with an address of [address] [place], [place] [address] in [place]. ZENOBIA signed for [facility], and IP rehab at [facility]. Transportation provider at discharge will be Esmer . CM will continue to follow and will assist as needed with dc plans/needs. Kiln Door Builder: Cherise Moraes DCPIA - Discharge Planning Initial Assessment Updated by [email or web address]: Cheries Moraes on 01/30/20 12:13 pm * Is the patient Alert and Oriented? Yes * How many steps to enter\exit or inside your home? RAMP * PCP CHRISTA JIMENEZ * [facility] * Preadmission Environment Home Alone * ADLs Independent * Equipment Shower Chair * List name and contact numbers for known caregivers / representatives who currently or will assist patient after discharge: ESMER MATTHEWS [phone] * Verbal permission to speak to the caregivers and representatives has been obtained from the patient. Yes * Community resources currently utilized None * Additional services required to return to the preadmission environment? Yes * Can the patient safely return to the preadmission environment? No * Has this patient been hospitalized within the prior 30 days at any hospital? No Coverage Notice Reviewer: [id number] Megan Stock Notice Issued Date-Time: 01/26/2020 14:10 Notice Type: Medicare Outpatient Observation Notice Notice Delivered To: Patient Relationship to Patient: Self Dock Operator Name: Delivery Method: HAND - Hand Delivered Alma Delia Days: Prior Verbal Notification: Recipient Understood Notice: Recipient Signature: Yes Med Rec Note Co-signed by Attending: Coverage Notice Comment: Last DP export: 01/30/20 11:18 a Patient Name: KALINA JOSEPH Page [phone] at 1237 All edits/amendments must be made on the electronic document DICTATION DATE: 01/30/20 1237 AUTO DEALERSHIP PORTER: FAHAD 01/30/20 1237 RPT#: [id number] DC DATE: STATUS: ADM IN [facility] [address] [place] [address] END OF REPORT
--- NOTE | 2020-01-30 12:55 | NUR ---
Nutrition Follow-up: Overall PO intake has been fair but pt reports not eating this AM 2/2 pain. Diet: Cardiac PO intake: 50% avg x 6 meals (01/27-01/28) No new wt; last wt: 155# (01/27) Last BM: 01/27 per pt Labs noted: K+ 3.0, Glu 124, Ca 7.6, Mg 1.6, Alb 2.7 Meds noted: Miralax, Lasix, Micro K, Protonix, electrolyte protocol -Encourage PO intake and honor food preferences within diet restrictions. -Offer nutrition supplements. -Need new wt; noted daily wts ordered. -RD following.
[2020-01-30 13:23] LABS: BILIRUBIN NEGATIVE (NEGATIVE); GLUCOSE 1000 mg/dL (NEGATIVE); KETONE NEGATIVE (NEGATIVE); NITRITE NEGATIVE (NEGATIVE); SPECIFIC GRAVITY 1.015 (1.005-1.020)
--- NOTE | 2020-01-30 15:19 | NUR ---
PATIENT RESTING QUIETLY WITH EYES CLOSED AND BREATHING EVENLY. WILL CONTINUE TO MONITOR. SR UP X 2 BED IN LOW POSITION AND CALL LIGHT IN REACH.
--- NOTE | 2020-01-30 16:16 | NUR ---
OT NOTE: BLANKET INSPECTOR REPORTED TO THERAPIST THAT PT REQUIRED MAX ASSIST X 2 FOR BS TRANSFER TODAY; PT IS STATING THAT HER KNEE IS HURTING VERY BAD AND SHE CANT MOVE IT. MET WITH PT IN AM AND SHE REPORTED JUST RECEIVING PAIN PILL AND ASKED IF SHE COULD BE SEEN BY THERAPY IN THE PM. OBSERVED INCREASED SWELLING IN L KNEE. PT STATES THAT IT BEGAN HURTING WHEN BP CUFF WAS PLACED ON IT, HOWEVER, DONT BELIEVE THIS TO BE TRUE, IT IS IN THE ACTUAL KNEE JOINT. LINNEA LOWRY, OTR/L [phone]
--- NOTE | 2020-01-30 16:44 | NUR ---
OT NOTE: PT COMPLETED BED MOB TASKS WITH MAX A . PT LLE PATELLA IS PAINFUL AND INCREASED DIFFICULTY WITH BED MOB TASKS. 1-116 THANK YOU,JACQUELINE PENA
[2020-01-30 17:54] VITALS: BP 109/63
--- NOTE | 2020-01-30 19:19 | NUR ---
REPORT RECEIVED AND ROUNDING COMPLETE. PATIENT LAYING IN BED IN LOW FOWLERS. NO DISTRESS NOTED, EYES CLOSED, BREATHING EVEN AND UNLABORED. EASILY AWAKEN WHEN TALKED TO. PIV TO THE RIGHT AC, SALINE LOCKED AT THIS TIME. PIV FLUSHES EASILY. PATIENT ASKED FOR A GLASS OF ICE WATER, GLASS OF WATER GIVEN. NO OTHER NEEDS AT THIS TIME. CALL LIGHT WITHIN REACH AND BED IN LOWEST LOCKED POSITION.
[2020-01-30 20:00] VITALS: BP 123/57
[2020-01-31] VITALS: BP 116/75
[2020-01-31 04:00] VITALS: BP 114/69
[2020-01-31 06:49] LABS: ALBUMIN 2.5 g/dL (3.4-5.0); ANION GAP 13.8 mmol/L (8-16); BILIRUBIN - TOTAL 2.4 mg/dL (0.2-1.3); CARBON DIOXIDE 21.8 mmol/L (21.0-32.0); CREATININE - SERUM 0.9 mg/dL (0.6-1.3); POTASSIUM - SERUM 3.6 mmol/L (3.5-5.1); PROTEIN - SERUM 6.2 g/dL (6.4-8.2)
--- NOTE | 2020-01-31 07:10 | NUR ---
REPORT RECEIVED FROM MANAGER SUPPORT AND PATIENT CARE ASSUMED. PATIENT LAYING IN BED ON BACK WITH EYES CLOSED AND BREATHING EVENLY. WILL CONTINUE WITH PLAN OF CARE. SR UP X 2 BED IN LOW POSITION AND CALL LIGHT IN REACH.
[2020-01-31 07:19] LABS: BASOPHILS 0.1 % (0-2); EOSINOPHILS 0 % (0-7); HEMATOCRIT 38.8 % (36.0-48.0); HEMOGLOBIN 13.4 g/dL (12-16); IMMATURE GRANULOCYTES 0.4 % (0-5); LYMPHOCYTES 15.1 % (15-50); MCH 23.1 pg (26.0-34.0); MCHC 34.5 g/dL (31.0-37.0); MONOCYTES 13.3 % (2-11); NEUTROPHILS 71.1 % (40-80); PLATELET COUNT 136 10x3/uL (130-400); RBC 5.79 10x6/uL (4.00-5.40); RDW 21.4 % (11.5-14.5); WBC 7.1 10x3/uL (4.8-10.8)
[2020-01-31 09:50] VITALS: BP 106/64; BP 145/88
--- NOTE | 2020-01-31 10:45 | NUR ---
PATIENT UP TO BS COMMODE WITH TWO PERSON ASST. MEDICATED PATIENT WO ITH ULTRAM FOR PAIN. WILL CONTINUE TO MONITOR. SR UP X 2 BED IN LOW POSITION AND CALL LIGHT IN REACH.
--- NOTE | 2020-01-31 11:50 | NUR ---
OT NOTE: NURSING REPORTED THAT PT CONT WITH PAIN AND EDEMA IN L LE. ATTEMPTED TO PULL COVERS BACK FROM PT AND SHE YELLED OUT.. WITH ASSIST OF P.T AND EXTENDED AMOUNT OF TIME (GREATER THAN 45 MIN) WE WERE ABLE TO ASSIST PT TO EOB WITH MOD ASSIST WHILE SUPPORTING L LEG. TRANSFERRED TO COMMODE WITH WALKER AND MOD ASSIST X 2; TOILET HYGIENE WITH SET UP; MAX ASSIST WITH CLOTHING MGMT; SET UP FOR FEEDING AND SIMPLE GROOMING TASKS; TRANSFERRED BACK TO BED WITH MOD ASSIST X 2 AND WALKER; SIT TO SUPINE WITH MAX ASSIST; REPOSITIONED WITH MOD ASSIST X 2. LINNEA LOWRY, OTR/L [phone]
[2020-01-31 13:59] VITALS: BP 98/63
--- NOTE | 2020-01-31 16:21 | NUR ---
OT NOTE: PT COMPLETED UB HGYIENE TASKS WITH SETUP. PT COMPLETED UB AROM EXS. 120-144 THANK YOU,JACQUELINE PENA
[2020-01-31 21:10] VITALS: BP 111/54
--- NOTE | 2020-01-31 23:26 | NUR ---
INITIAL ROUNDS COMPLETED AT 1915 HRS. PT DENIED ANY DISCOMFORT. VSS. SR PER CM HR 74. PM MEDS GIVEN PER ORDERS. ASSESMENT COMPLETED AT 2200 HRS. IV TO RAC SL. LUNGS DIMINISHED IN BASES BILAT. COPE. PALPABLE PRIPHERAL PULSES. L MASECTOMY NOTED. L KNEE SWOLLEN AND SLIGHTLY RED. PT CURRENTLY RESTING WITH EYES CLOSED. RESP EVEN AND REGULAR. SR UP X1, CALL LIGHT WITHIN REACH AND BSC BY BED.
[2020-02-01 00:13] VITALS: BP 99/49
--- NOTE | 2020-02-01 01:35 | NUR ---
PT RESTING WITH EYES CLOSED. RESP EVEN AND REGULAR. SR UP X1, CALL LIGHT WITHIN REACH.
--- NOTE | 2020-02-01 04:41 | NUR ---
PT AWAKE; DENIES ANY DISCOMFORT. CALL LIGHT WITHIN REACH.
[2020-02-01 04:54] VITALS: BP 97/64
--- NOTE | 2020-02-01 05:34 | NUR ---
VSS THROUGHOUT NIGHT. SR PER CM. PT STATED SHE RESTED WELL DURING SHIFT. NEEDS MET; WILL CONTINUE TO MONITOR.
[2020-02-01 05:46] LABS: BASOPHILS 0.2 % (0-2); EOSINOPHILS 1.9 % (0-7); HEMATOCRIT 35.2 % (36.0-48.0); IMMATURE GRANULOCYTES 0.2 % (0-5); LYMPHOCYTES 22.3 % (15-50); MCH 23.1 pg (26.0-34.0); MCHC 34.1 g/dL (31.0-37.0); MCV 67.8 fL (80.0-100.0); MONOCYTES 15.5 % (2-11); NEUTROPHILS 59.9 % (40-80); PLATELET COUNT 139 10x3/uL (130-400); RBC 5.19 10x6/uL (4.00-5.40); RDW 21.1 % (11.5-14.5)
[2020-02-01 05:50] LABS: WBC 5.3 10x3/uL (4.8-10.8)
[2020-02-01 06:03] LABS: ANION GAP 9.7 mmol/L (8-16); CALCIUM 8.3 mg/dL (8.5-10.1); CARBON DIOXIDE 25.2 mmol/L (21.0-32.0); POTASSIUM - SERUM 3.9 mmol/L (3.5-5.1)
--- NOTE | 2020-02-01 08:37 | NUR ---
AM MEDS GIVEN AT THIS TIME. PT IN BED, EATING BREAKFAST, DENIES ANY NEEDS AT THIS TIME. RT AC IV SL. CALL LIGHT IN REACH, NAD NOTED, WILL CONTINUE TO MONITOR.
[2020-02-01 08:56] VITALS: BP 98/52
[2020-02-01 13:12] VITALS: BP 101/62
--- NOTE | 2020-02-01 16:57 | NUR ---
PT C/O ITCHING. BENADRYL GIVEN AT THIS TIME. ALSO PROVIDED PT WITH CUP OF FRESH WATER, PT DENIES ANY OTHER NEEDS AT THIS TIME. CALL LIGHT IN REACH, NAD NOTED,W ILL CONTINUE TO MONITOR.
[2020-02-01 18:31] VITALS: BP 94/63
--- NOTE | 2020-02-01 19:40 | NUR ---
INITIAL ROUNDS COMPLETED. PT DENIED ANY DISCOMFORT. CALL LIGHT WITHIN REACH.
[2020-02-01 20:00] VITALS: BP 98/59
--- NOTE | 2020-02-01 23:09 | NUR ---
INITIAL ROUNDS COMPLETED AT 1915 HRS. PT DENIED ANY DISCOMFORT. ASSESSMENT COMPLETED AT 1999 HRS. VSS. SR PER CM HR 75. ALERT AND ORIENTED TO PERSON, PLACE AND TIME. COPE. IV TO RAC SL. OLD L MASECTOMY NOTED. L KNEE SLIGHTLY SWOLLEN. PT STATES IT FEELS MUCH BETTER THIS PM. PM MEDS GIVEN PER ORDERS. PT CURRENTLY RESTING WITH EYES CLOSED. RESP EVEN AND REGULAR. SR UP X1,CALL LIGHT WITHIN REACH.
[2020-02-02] VITALS: BP 93/60
--- NOTE | 2020-02-02 00:51 | NUR ---
PT RESTING WITH EYES CLOSED. RESP EVEN AND REGULAR. CALL LIGHT WITHIN REACH.
--- NOTE | 2020-02-02 04:58 | NUR ---
IV OUT WITH CATHETER INTACT. REFUSES A NEW IV. DENIES ANY DISCOMFORT. CALL LIGHT WITHIN REACH.
[2020-02-02 06:17] LABS: ANION GAP 13.1 mmol/L (8-16); CALCIUM 8.3 mg/dL (8.5-10.1); CARBON DIOXIDE 24.4 mmol/L (21.0-32.0); CREATININE - SERUM 1.1 mg/dL (0.6-1.3); POTASSIUM - SERUM 3.5 mmol/L (3.5-5.1)
--- NOTE | 2020-02-02 06:32 | NUR ---
VSS THROUGHOUT NIGHT. PT STATED ATARAX AND BENADRYL CONTROLLED HER ITCHING. NEEDS MET; WILL CONTINUE TO MONITOR.
[2020-02-02 06:37] LABS: HEMATOCRIT 35.1 % (36.0-48.0); MCH 23.1 pg (26.0-34.0); MCHC 34.2 g/dL (31.0-37.0); MCV 67.5 fL (80.0-100.0); PLATELET COUNT 153 10x3/uL (130-400); RDW 20.9 % (11.5-14.5)
[2020-02-02 06:40] LABS: WBC 3.9 10x3/uL (4.8-10.8)
[2020-02-02 06:57] LABS: EOSINOPHILS 1 % (0-7); LYMPHOCYTES 17 % (15-50); MONOCYTES 3 % (2-11); NEUTROPHILS 79 % (40-80)
[2020-02-02 06:58] LABS: PLATELET ESTIMATE NORMAL; SCHISTOCYTES OCC; TARGET CELLS OCC
--- NOTE | 2020-02-02 08:34 | NUR ---
AM MEDS GIVEN AT THIS TIME. ALSO PROVIDED COMPLETE LINEN CHANGE. PT A/O X4, RESP EVEN AND UNLABORED ON RA, REFUSED TO HAVE ANOTHER IV STARTED. MONITOR SHOWING SR WITH RATE OF 65. PT DENIES ANY OTHER NEEDS AT THIS TIME. CALL LIGHT IN REACH, NAD NOTED,W ILL CONTINUE TO MONITOR.
[2020-02-02 09:44] VITALS: BP 108/63
[2020-02-02 13:38] VITALS: BP 93/47
[2020-02-02 17:45] VITALS: BP 102/63
--- NOTE | 2020-02-02 19:50 | NUR ---
INITIAL ROUNDS COMPLETED AT 1910 HRS. PT DENIED ANY DISCOMFORT. ASSESMENT COMPLETED AT 1950 HRS. VSS. SR PER CM HR 78. ALERT AND ORIENTED TOPERSON, PLACE AND TIME. COPE. OLD L MASECTOMY NOTED. LUNGS CTA. ACTIVE BS. PALPABLE PERIPHERAL PULSES. CALL LIGHT WITHIN REACH.
[2020-02-02 20:00] VITALS: BP 123/73
--- NOTE | 2020-02-02 21:29 | NUR ---
PM MEDS GIVEN INCLUDING BENADRYL FOR C/O ITCHING. NO DISTRESS NOTED.
--- NOTE | 2020-02-02 23:58 | NUR ---
PT AWAKE; DENIES ANY DISCOMFORT OR NEEDS. CALL LIGHT WITHIN REACH.
[2020-02-03] VITALS: BP 138/63
--- NOTE | 2020-02-03 01:39 | NUR ---
PT RESTING WITH EYES CLOSED. RESP EVEN AND REGULAR. CALL LIGHT WITHIN REACH.
[2020-02-03 04:00] VITALS: BP 167/68
--- NOTE | 2020-02-03 04:23 | NUR ---
PT RESTING WITH EYES CLOSED. RESP EVEN AND REGULAR. CALL LIGHT WITHIN REACH.
[2020-02-03 06:20] LABS: ALBUMIN 2.6 g/dL (3.4-5.0); ANION GAP 11.9 mmol/L (8-16); BILIRUBIN - TOTAL 1.28 mg/dL (0.2-1.3); CALCIUM 8.2 mg/dL (8.5-10.1); CARBON DIOXIDE 25.8 mmol/L (21.0-32.0); POTASSIUM - SERUM 3.7 mmol/L (3.5-5.1); PROTEIN - SERUM 6.5 g/dL (6.4-8.2)
--- NOTE | 2020-02-03 06:22 | NUR ---
VSS THROUGHOUT NIGHT. SR PER CM. PT DENIED ANY DISCOMFORT. NEEDS MET; WILL CONTINUE TO MONITOR.
[2020-02-03 06:39] LABS: BASOPHILS 0.3 % (0-2); EOSINOPHILS 4.3 % (0-7); HEMATOCRIT 36.9 % (36.0-48.0); HEMOGLOBIN 12.5 g/dL (12-16); LYMPHOCYTES 34.3 % (15-50); MCH 22.7 pg (26.0-34.0); MCHC 33.9 g/dL (31.0-37.0); MCV 67.1 fL (80.0-100.0); MONOCYTES 12.8 % (2-11); NEUTROPHILS 48.3 % (40-80); PLATELET COUNT 171 10x3/uL (130-400); RDW 20.9 % (11.5-14.5); WBC 3.3 10x3/uL (4.8-10.8)
--- NOTE | 2020-02-03 08:02 | NUR ---
AM MEDS GIVEN AT THIS TIME. PT RESTING COMFORTABLY I BED, DENIES ANY NEEDS AT THIS TIME. [facility], NAD NOTED, WILL CONTINUE TO MONITOR.
[2020-02-03 09:22] VITALS: BP 111/76
[2020-02-03 13:56] VITALS: BP 103/64
--- NOTE | 2020-02-03 15:23 | NUR ---
Recieved a call from Markel with [facility]. This patient has been denied for the inpatient rehab. If physician disagrees a peer to peer can be done by calling Markel at [phone] x [phone] before 3:00 pm tomorrow 02/04/20. Called CM Cherise Moraes RN. Juana Michaud RN Clinical Liaison, Rehab
--- NOTE | 2020-02-03 15:56 | NUR ---
PROVIDED VERBAl AND WRITTEN DISCHARGE TEACHING TO PT WHO VERBALIZED UNDERSTANDING REGARING TEACHING. HEART MONITOR REMOVED AND TAKEN TO PROCESS DESCRIPTION WRITER. PT WAITING ON RIDE, WILL NOTIFY NURSE WHEN READY FOR WHEELCHAIR.
--- NOTE | 2020-02-03 16:24 | MORECARE ---
CASE MANAGEMENT DISCHARGE SUMMARY PATIENT: KALINA JOSEPH UNIT: [id number] ADM DATE: 01/28/20 AGE: 74 : 46 SEX: F ROOM/BED: D.2121 AUTHOR: YONNY,DOC PHYSICIAN: REFERRING PHYSICIAN: TOMASA MCGEE MD DATE OF SERVICE: 02/03/20 Discharge Plan Patient Name: KALINA JOSEPH Facility: [facility]:[place] : 1945 Planned Disposition: Anticipated Discharge Date: Discharge Date: Expected LOS: Initial Reviewer: [email or web address] Initial Review Date: 01/25/2020 Generated: 02/03/20 5:23 pm Comments DCP- Discharge Planning Updated by [id number]: Cherise Moraes on 02/03/20 3:[address] Patient Name: KALINA JOSEPH Encounter No: [id number] : 1945 Primary Insurance: [employer] SOLUTIONS Anticipated DC Date: Planned Disposition: External Planned Provider: : DCP follow-up note: Patient lives at home alone and has been independent with all her needs. At discharge patient will have [employer] after. CM spoke with Seamus at [facility] and provided Clinicals. Seamus will sent dc paperwork to the facility for [place]. Pt states she will stay with her daughter until she can stay alone. Her daughter is Xiomara Joseph with an address of [address] [place] [address] in [place]. Transportation provider at discharge will be Esmer . CM will continue to follow and will assist as needed with dc plans/needs. Patient and family in agreement with discharge plan. No changes to plan. DC IMM delivered, explained, signed by the patient, and placed in chart. Signed form also left with the patient. Case management will follow and assist as needed. Cherise MCNEAL,RN,CM DCP- Discharge Planning Updated by [id number]: Cherise Moraes on 01/30/20 11:[address] Patient Name: KALINA JOSEPH Admission Status: Elective Accout number: [id number] Admission Date: 01-28-2020 : 1945 Admission Diagnosis: Attending: TOMASA EDGE Current LOS: 2 Anticipated DC Date: Planned Disposition: Primary Insurance: [employer] MEDIC[employer] SOLUTIONS Discharge Planning Comments: CM met with patient to complete initial dc planning assessment. CM educated patient on the CM role and verbal consent given by patient to complete assessment. CM verified patient's address, phone number, and emergency contact phone numbers. Patient lives at home alone and has been independent with all her needs. At discharge patient would like to go to IP rehab to help with endurance, and health after. Pt states she will stay with her daughter until she can stay alone. Her daughter is Xiomara Joseph with an address of [address] in [place]. ZENOBIA signed for [facility], and IP rehab at [facility]. Transportation provider at discharge will be Esmer . CM will continue to follow and will assist as needed with dc plans/needs. Butadiene Convertor Operator: Cherise Moraes DCPIA - Discharge Planning Initial Assessment Updated by [id number]: Cherise Moraes on 01/30/20 12:13 pm * Is the patient Alert and Oriented? Yes * How many steps to enter\exit or inside your home? RAMP * PCP CHRISTA JIMENEZ * [facility] * Preadmission Environment Home Alone * ADLs Independent * Equipment Shower Chair * List name and contact numbers for known caregivers / representatives who currently or will assist patient after discharge: ESMER MATTHEWS [phone] * Verbal permission to speak to the caregivers and representatives has been obtained from the patient. Yes * Community resources currently utilized None * Additional services required to return to the preadmission environment? Yes * Can the patient safely return to the preadmission environment? No * Has this patient been hospitalized within the prior 30 days at any hospital? No Coverage Notice Reviewer: [id number] Megan Stock Notice Issued Date-Time: 01/26/2020 14:10 Notice Type: Medicare Outpatient Observation Notice Notice Delivered To: Patient Relationship to Patient: Self Systems Protection Technician Name: Delivery Method: HAND - Hand Delivered Alma Delia Days: Prior Verbal Notification: Recipient Understood Notice: Recipient Signature: Yes Med Rec Note Co-signed by Attending: Coverage Notice Comment: Reviewer: [id number] - Cherise Moraes Notice Issued Date-Time: 01/30/2020 12:00 Notice Type: Patient Choice Letter Notice Delivered To: Patient Relationship to Patient: Systems Protection Technician Name: Delivery Method: HAND - Hand Delivered Alma Delia Days: Prior Verbal Notification: Recipient Understood Notice: Yes Recipient Signature: Yes Med Rec Note Co-signed by Attending: Coverage Notice Comment: [facility], and [facility] Reviewer: [id number] Megan Moraes Notice Issued Date-Time: 02/03/2020 15:30 Notice Type: IM Discharge Notice Notice Delivered To: Patient Relationship to Patient: Systems Protection Technician Name: Delivery Method: HAND - Hand Delivered Alma Delia Days: Prior Verbal Notification: Recipient Understood Notice: Yes Recipient Signature: Yes Med Rec Note Co-signed by Attending: Coverage Notice Comment: DC IMM delivered, explained, signed by the patient, and placed in chart. Signed form also left with the patient. Last DP export: 01/30/20 11:37 a Patient Name: KALINA JOSEPH Page [phone] at 1624 All edits/amendments must be made on the electronic document DICTATION DATE: 02/03/201622 INDUSTRIAL ECONOMICS TEACHER: FAHAD 02/03/201622 RPT#: [id number] DC DATE: STATUS: ADM IN [facility] [address] [place] [address] END OF REPORT
--- NOTE | 2020-02-03 16:40 | NUR ---
OT NOTE: PT COMPLETED BED MOB WITH CGA/MIN A. PT COMPLETED EOB SITTING WITH SBA. PT COMPLETED SIMPLE HYGIENE TASKS WITH SETUP. [phone] THANK YOU,SOWMYA WILLINGHAM.JACQUELINE
--- NOTE | 2020-02-03 17:13 | NUR ---
PT LEFT UNIT VIA WHEELCHAIR, WITH ALL BELONGINGS, NAD NOTED.
--- NOTE | 2020-02-05 07:46 | MORECARE ---
CASE MANAGEMENT DISCHARGE SUMMARY PATIENT: KALINA JOSEPH UNIT: [id number] ADM DATE: 01/28/20 AGE: 74 : 46 SEX: F ROOM/BED: D.2121 AUTHOR: YONNY,DOC PHYSICIAN: REFERRING PHYSICIAN: TOMASA MCGEE MD DATE OF SERVICE: 02/05/20 Discharge Plan Patient Name: KALINA JOSEPH Facility: [facility]:[place] : 1945 Planned Disposition: Anticipated Discharge Date: Discharge Date: 02/03/2020 Expected LOS: Initial Reviewer: [id number] Initial Review Date: 01/25/2020 Generated: 02/05/20 8:45 am Comments DCP- Discharge Planning Updated by [id number]: Cherise Moraes on 02/03/20 3:[address] Patient Name: KALINA JOSEPH Encounter No: [id number] : 1945 Primary Insurance: [employer]IONS Anticipated DC Date: Planned Disposition: External Planned Provider: : DCP follow-up note: Patient lives at home alone and has been independent with all her needs. At discharge patient will have [employer] after. CM spoke with Seamus at [facility] and provided Clinicals. Seamus will sent dc paperwork to the facility for [place]. Pt states she will stay with her daughter until she can stay alone. Her daughter is Xiomara Joseph with an address of [address] [place] [address] in [place]. Transportation provider at discharge will be Esmer . CM will continue to follow and will assist as needed with dc plans/needs. Patient and family in agreement with discharge plan. No changes to plan. DC IMM delivered, explained, signed by the patient, and placed in chart. Signed form also left with the patient. Case management will follow and assist as needed. Cherise Moraes MSN,RN,CM DCP- Discharge Planning Updated by [id number]: Cherise Moraes on 01/30/20 11:[address] Patient Name: KALINA JOSEPH Admission Status: Elective Accout number: [id number] Admission Date: 01-28-2020 : 1945 Admission Diagnosis: Attending: TOMASA EDGE Current LOS: 2 Anticipated DC Date: Planned Disposition: Primary Insurance: [employer] Discharge Planning Comments: CM met with patient to complete initial dc planning assessment. CM educated patient on the CM role and verbal consent given by patient to complete assessment. CM verified patient's address, phone number, and emergency contact phone numbers. Patient lives at home alone and has been independent with all her needs. At discharge patient would like to go to IP rehab to help with endurance, and HH health after. Pt states she will stay with her daughter until she can stay alone. Her daughter is Xiomara Joseph with an address of [facility] [address] in [place]. ZENOBIA signed for [facility], and IP rehab at [facility]. Transportation provider at discharge will be Esmer . CM will continue to follow and will assist as needed with dc plans/needs. Senior Licensing Manager: Cherise Moraes DCPIA - Discharge Planning Initial Assessment Updated by [id number]: Cherise Moraes on 01/30/20 12:13 pm * Is the patient Alert and Oriented? Yes * How many steps to enter\exit or inside your home? RAMP * PCP CHRISTA JIMENEZ * [facility] * Preadmission Environment Home Alone * ADLs Independent * Equipment Shower Chair * List name and contact numbers for known caregivers / representatives who currently or will assist patient after discharge: ESMER MATTHEWS [phone] * Verbal permission to speak to the caregivers and representatives has been obtained from the patient. Yes * Community resources currently utilized None * Additional services required to return to the preadmission environment? Yes * Can the patient safely return to the preadmission environment? No * Has this patient been hospitalized within the prior 30 days at any hospital? No Coverage Notice Reviewer: [email or web address] Megan Stock Notice Issued Date-Time: 01/26/2020 14:10 Notice Type: Medicare Outpatient Observation Notice Notice Delivered To: Patient Relationship to Patient: Self Inventory Coordinator Name: Delivery Method: HAND - Hand Delivered Alma Delia Days: Prior Verbal Notification: Recipient Understood Notice: Recipient Signature: Yes Med Rec Note Co-signed by Attending: Coverage Notice Comment: Reviewer: [id number] - Cherise Moraes Notice Issued Date-Time: 01/30/2020 12:00 Notice Type: Patient Choice Letter Notice Delivered To: Patient Relationship to Patient: Inventory Coordinator Name: Delivery Method: HAND - Hand Delivered Alma Delia Days: Prior Verbal Notification: Recipient Understood Notice: Yes Recipient Signature: Yes Med Rec Note Co-signed by Attending: Coverage Notice Comment: [facility] Reviewer: [id number] Megan Moraes Notice Issued Date-Time: 02/03/2020 15:30 Notice Type: IM Discharge Notice Notice Delivered To: Patient Relationship to Patient: Inventory Coordinator Name: Delivery Method: HAND - Hand Delivered Alma Delia Days: Prior Verbal Notification: Recipient Understood Notice: Yes Recipient Signature: Yes Med Rec Note Co-signed by Attending: Coverage Notice Comment: DC IMM delivered, explained, signed by the patient, and placed in chart. Signed form also left with the patient. Last DP export: 02/03/20 3:24 p Patient Name: KALINA JOSEPH Page [phone] at 0746 All edits/amendments must be made on the electronic document DICTATION DATE: 02/05/2045 DOCUMENTATION NURSE: FAHAD 02/05/20 0745 RPT#: [id number] DC DATE:02/03/20 STATUS: DIS IN [facility] [address] [place] [address] END OF REPORT
== END 2020-02-03 17:13 | disposition home health service (06) | DRG 281 ==
LOC: D.ER 12:35 → D.M2 15:12 → OBSVTIME 15:58 → D.M2 01-28 12:11
PROVIDERS: Emergency Medicine; Family Medicine; Internal Medicine Cardiovascular Disease; ADMIT Family Medicine Adult Medicine; ATTEND Family Medicine Adult Medicine
PROC: B2151ZZ Fluoroscopy of Left Heart using Low Osmolar Contrast (ICD-10-PCS; 2020-01-27)
PROC: 4A023N7 Measurement of Cardiac Sampling and Pressure, Left Heart, Percutaneous Approach (ICD-10-PCS; 2020-01-27)
PROC: B2111ZZ Fluoroscopy of Multiple Coronary Arteries using Low Osmolar Contrast (ICD-10-PCS; principal; 2020-01-27 09:17)
DX: I11.0 Hypertensive heart disease with heart failure (principal); I21.A1 Myocardial infarction type 2; N17.9 Acute kidney failure, unspecified; I50.23 Acute on chronic systolic (congestive) heart failure; I42.9 Cardiomyopathy, unspecified; I25.10 Atherosclerotic heart disease of native coronary artery without angina pectoris; D72.819 Decreased white blood cell count, unspecified; E80.6 Other disorders of bilirubin metabolism; K21.9 Gastro-esophageal reflux disease without esophagitis; I10 Essential (primary) hypertension; M10.9 Gout, unspecified; M54.9 Dorsalgia, unspecified